=== PATIENT | male | born 1975 ===

== ENCOUNTER 2025-05-24 07:00 | Day surgery (SDC) | payer OTHER ==
[2025-05-13 09:10] LABS: BASO % 1.0 % (0.1-1.2); EOS # 0.15 (0.04-0.54); EOS % 1.9 % (0.7-7.0); LYMPH # 1.24 (1.18-3.74); LYMPH % 15.3 % (19.3-53.1); MEAN PLATELET VOLUME 11.80 fl (9.4-12.4); MONO # 0.65 (0.24-0.82); MONO % 8.0 % (4.7-12.5); NEUT # 5.93 (1.56-6.13); NEUT % 73.4 % (34.0-71.1); RED CELL DISTRIBUTION WIDTH 12.6 % (11.6-14.4); URINE APPEARANCE Clear; URINE BILIRRUBIN Negative (NEGATIVE); URINE BLOOD Negative; URINE COLOR Yellow; URINE GLUCOSE Negative (NEGATIVE); URINE KETONE Negative (NEGATIVE); URINE LEUKOCYTE Negative; URINE NITRATE Negative; URINE PROTEIN Negative (NEGATIVE); URINE UROBILINOGEN 0.2 E.U./dl
[2025-05-13 09:31] LABS: URINE BACTERIA 1.1 uL (0.0-1933); URINE EPITHELIAL CELLS 0.1 uL (0.0-38.8); URINE RBC 0.4 uL (0.0-20.8); URINE WBC 1.3 uL (0.0-23.2)
[2025-05-13 09:32] LABS: URINE CAST 0.00 uL (0.0-1.40)
[2025-05-13 10:14] LABS: ALT/SGPT 45.0 U/L (12-78); AST/SGOT 28.0 U/L (15-37); BILIRUBIN TOTAL 0.64 mg/dL (0.3-1.2); BUN CREA RATIO 13.0 (7.0-25.0); CREATININE SERUM 1.06 mg/dL (0.70-1.30); GFR 73.65; GLOBULINA 3.2 G/DL (2.4-3.5); GLUCOSE FASTING 103.0 mg/dL (65-100); OSMOLALITY SERUM 282.0 MOSM/KG (275-295)
[2025-05-13 10:16] LABS: INR 1.01
[~2025-05-24 07:00] MED LIST: BUPROPION; CLONAZEPAM0.5 MG
[2025-05-24] MEDS ORDERED: CEFAZOLIN SODIUM 1,000 MG VIAL ONE (08:36)
== END 2025-05-24 17:35 | disposition home or self-care (01) ==
LOC: CIR.AMB 07:00
PROVIDERS: ATTEND Surgery
DX: K40.30 Unilateral inguinal hernia, with obstruction, without gangrene, not specified as recurrent (principal)